=== PATIENT | male | born 1980 | race American Indian/Alaskan Native ===

== ENCOUNTER 2022-08-08 22:27 | Emergency (ER) | payer MEDICAID, OTHER ==
[~2022-08-08] VITALS: Ht 185.4 cm; Wt 72.6 kg
[~2022-08-08 22:27] MED LIST: CEPH-571 PO
[2022-08-08 22:29] VITALS: BP 128/92
== END 2022-08-08 23:19 ==
LOC: ER 22:28
DX: R45.851 Suicidal ideations (principal); Z87.81 Personal history of (healed) traumatic fracture
CPT/HCPCS: 99283